=== PATIENT | male | born 1955 | race Caucasian/White ===

== ENCOUNTER 2022-06-27 02:26 | Emergency (ER) | payer BC ==
[2022-06-27] MEDS ORDERED: Aspirin 81 MG Tab.Chew PO ONE (02:40)
[2022-06-27] MEDS ORDERED: Sodium Chloride 0.9% 1,000 ML IV SCH (02:45)
[2022-06-27] MEDS ORDERED: Heparin Sodium/0.45% NaCl 500 ML IV SCH (02:45)
[2022-06-27] MEDS ORDERED: Tenecteplase 50 MG Kit IV ONE ×2 (02:48→02:49)
[2022-06-27] MEDS ORDERED: Heparin Sodium 5,000 Units/ML Vial IVPUSH ONE (02:51)
[2022-06-27] MEDS ORDERED: Lactated Ringers 1,000 ML IV ONE (02:54)
[2022-06-27 04:33] LABS: CARBON DIOXIDE,CO2 25.6 mmol/L (21.0-32.0); POTASSIUM,K 3.9 mmol/L (3.5-5.1)
== END 2022-06-27 03:37 ==
LOC: MW.ED 02:26
DX: I21.9 Acute myocardial infarction, unspecified (principal); Z79.899 Other long term (current) drug therapy; Z79.82 Long term (current) use of aspirin; Z20.822 Contact with and (suspected) exposure to COVID-19
CPT/HCPCS: 36415; 80048; 84484; 85025; 85730; 87635; 92977; 93005; 96365; 96376; 99285; A9270; J1644; J3101; J7030; 93010; U0002